=== PATIENT | male | born 1965 | race African-American/Black ===

== ENCOUNTER 2020-01-28 21:00 | Emergency (ER) | payer OTHER ==
[~2020-01-28] VITALS: Ht 175.3 cm; Wt 140.6 kg
[2020-01-28 21:03] VITALS: BP 146/89
== END 2020-01-29 06:30 | disposition home or self-care (01) ==
LOC: ER 21:00
DX: T69.8XXA Other specified effects of reduced temperature, initial encounter (principal); I10 Essential (primary) hypertension; E11.9 Type 2 diabetes mellitus without complications; Z59.0 Homelessness